=== PATIENT | male | born 1955 | race Hispanic/Latino ===

== ENCOUNTER → 2022-01-25 14:29 | Outpatient (CLI) | payer OTHER, SELFPAY ==
--- NOTE | ~2022-01-25 | XR_ITS ---
EXAMINATION:XR cervical spine 4-5V DATE: 01/25/2022 14:55 INDICATION: Right-sided neck pain and dizziness while sleeping. TECHNIQUE: AP, lateral, lateral swimmers and open-mouth and submental odontoid views of the cervical spine are provided. COMPARISON: None FINDINGS: Mild cervicothoracic levocurvature. Sagittal alignment is normal. Vertebral body heights are normal. Moderate disc height loss at T5 C6 and C6-C7 with mild multilevel moderate cervical facet osteoarthri tis. Degenerative endplate changes including small posterior inferior endplate osteophyte at C5 resul ting in mild central canal stenosis. Odontoid is intact. Normal atlantoaxial interval. Prevertebral soft tissues are normal. IMPRESSION: 1. Moderate cervical spondylosis. Reviewed, dictated and finalized at location A. [employer]
== END ==
PROVIDERS: PCP Emergency Medicine; Visit Provider Emergency Medicine
DX: M47.892 Other spondylosis, cervical region (principal)
CPT/HCPCS: 72050